=== PATIENT | male | born 1990 | race Caucasian/White ===

== ENCOUNTER 2023-02-27 17:24 | Emergency (ER) | payer SELFPAY ==
[~2023-02-27] VITALS: Ht 195.6 cm; Wt 83.9 kg
[2023-02-27 17:38] VITALS: O2SAT 99
[2023-02-27] MEDS ORDERED: IBUPROFEN 600MG TABLET PO ONE (18:30)
[2023-02-27] MEDS ORDERED: DEXAMETHASONE 2MG TABLET PO ONE (18:30)
[2023-02-27 19:34] VITALS: BP 127/84; PULSE 83; RESP 19; TEMP 98
== END 2023-02-27 19:35 | disposition home or self-care (01) ==
LOC: ER 17:24
DX: J02.9 Acute pharyngitis, unspecified (principal)
CPT/HCPCS: 99283; J8540